=== PATIENT | female | born 1940 | race Caucasian/White ===

== ENCOUNTER 2016-07-18 06:24 | Day surgery (SDC) | payer OTHER ==
[2016-07-17 09:21] VITALS: BMI 27.6
[~2016-07-18 06:24] MED LIST: BSS (NA/CA/MG/K) BALANCED SALT SOLUTION OPHTH SOLN 15 ML BOTTLE OS ONE; BUPIVACAINE HCL/PF 0.75% 10 ML VIAL RB ONE; CHONDROITIN SU A/HYALUR SOD 1 KIT IO ONE; LIDOCAINE HCL 1% PRESERVATIVE FREE - 30ML VIAL IO ONE; LIDOCAINE HCL/PF 2% SDV 5ML VIAL INF ONE; POVIDONE-IODINE 5% OPHTHALMIC PREP 30 ML SOLUTION OS ONE; TOBRA 0.3%/DEXAMETH 0.1% OPHTHALMIC SUSP 2.5 ML BTL TP ONE
--- NOTE | 2016-07-18 06:27 | HP ---
History & Physical Update - History History: No Change - Physical Physical: No Change - Assessment Assessment: No Change - Plan Plan: No Change
[2016-07-18] MEDS ORDERED: MOXIFLOXACIN HCL 0.5% OPHTHALMIC 3 ML BOTTLE OP SCH (06:30)
[2016-07-18] MEDS ORDERED: PHENYLEPHRINE 2.5% OPHTH SOLN 15 ML BOTTLE OP SCH (06:30)
[2016-07-18] MEDS ORDERED: CYCLOPENTOLATE HCL 1% OPHTH SOLN 2 ML BOTTLE OP SCH (06:30)
[2016-07-18] MEDS ORDERED: TROPICAMIDE 1% OPHTH SOLN 15 ML BOTTLE OP SCH (06:30)
[2016-07-18] MEDS ORDERED: MOXIFLOXACIN HCL 0.5% OPHTHALMIC 3 ML BOTTLE ONE (06:44)
[2016-07-18] MEDS ORDERED: TROPICAMIDE 1% OPHTH SOLN 15 ML BOTTLE ONE (06:44)
[2016-07-18] MEDS ORDERED: CYCLOPENTOLATE HCL 1% OPHTH SOLN 2 ML BOTTLE ONE (06:44)
[2016-07-18] MEDS ORDERED: PHENYLEPHRINE 2.5% OPHTH SOLN 15 ML BOTTLE ONE (06:45)
[2016-07-18] MEDS ORDERED: TROPICAMIDE 1% OPHTH SOLN 15 ML BOTTLE OS ONE ×3 (06:50→07:05)
[2016-07-18] MEDS ORDERED: PHENYLEPHRINE 2.5% OPHTH SOLN 15 ML BOTTLE OS ONE ×3 (06:50→07:05)
[2016-07-18] MEDS ORDERED: CYCLOPENTOLATE HCL 1% OPHTH SOLN 2 ML BOTTLE OS ONE ×3 (06:50→07:05)
[2016-07-18] MEDS ORDERED: MOXIFLOXACIN HCL 0.5% OPHTHALMIC 3 ML BOTTLE OS ONE ×3 (06:50→07:05)
[2016-07-18 06:58] VITALS: TEMP 98.3
[2016-07-18] MEDS ORDERED: BUPIVACAINE HCL/PF 0.75% 10 ML VIAL ONE (07:20)
[2016-07-18] MEDS ORDERED: LIDOCAINE HCL/PF 1% SDV 5ML VIAL ONE (07:20)
[2016-07-18] MEDS ORDERED: TOBRAMYCIN/DEXAMETHASONE OPHTH. OINTMENT 1 TUBE ONE (07:20)
[2016-07-18] MEDS ORDERED: EPINEPHrine/PF 1 MG/1 ML (1:1,000) AMPULE ONE (07:20)
[2016-07-18] MEDS ORDERED: LIDOCAINE HCL/PF 2% SDV 5ML VIAL ONE (07:21)
[2016-07-18] MEDS ORDERED: POVIDONE-IODINE 5% OPHTHALMIC PREP 30 ML SOLUTION ONE (07:21)
[2016-07-18] MEDS ORDERED: SUCCINYLCHOLINE CHLORIDE 200 MG/10 ML VIAL ONE (07:36)
[2016-07-18] MEDS ORDERED: TETRACAINE 0.5% OPHTH SOLN 2 ML BOTTLE ONE (08:03)
[2016-07-18] MEDS ORDERED: PROPOFOL 20 ML ONE (08:04)
[2016-07-18] MEDS ORDERED: TETRACAINE 0.5% OPHTH SOLN 2 ML BOTTLE OS ONE (08:04)
[2016-07-18] MEDS ORDERED: BUPIVACAINE HCL/PF 0.75% 10 ML VIAL RB ONE (08:07)
[2016-07-18] MEDS ORDERED: LIDOCAINE HCL/PF 2% SDV 5ML VIAL INF ONE (08:07)
[2016-07-18] MEDS ORDERED: POVIDONE-IODINE 5% OPHTHALMIC PREP 30 ML SOLUTION OS ONE (08:08)
[2016-07-18] MEDS ORDERED: EPINEPHrine/PF 1 MG/1 ML (1:1,000) AMPULE SQ ONE (08:16)
[2016-07-18] MEDS ORDERED: LIDOCAINE HCL 1% PRESERVATIVE FREE - 30ML VIAL IO ONE (08:16)
[2016-07-18] MEDS ORDERED: BSS (NA/CA/MG/K) BALANCED SALT SOLUTION OPHTH SOLN 15 ML BOTTLE OS ONE (08:16)
[2016-07-18] MEDS ORDERED: CHONDROITIN SU A/HYALUR SOD 1 KIT IO ONE (08:16)
[2016-07-18] MEDS ORDERED: ACETYLCHOLINE 1:100 INTRA-OCUL 20 MG/2 ML KIT IO ONE (08:49)
[2016-07-18] MEDS ORDERED: TOBRA 0.3%/DEXAMETH 0.1% OPHTHALMIC SUSP 2.5 ML BTL TP ONE (08:53)
[2016-07-18] MEDS ORDERED: ACETYLCHOLINE 1:100 INTRA-OCUL 20 MG/2 ML KIT ONE (09:12)
[2016-07-18] MEDS ORDERED: acetaZOLAMIDE 250 MG TABLET ONE (10:05)
[2016-07-18] MEDS ORDERED: ACETAMINOPHEN 325 MG TABLET (FP) PO PRN (10:54)
[2016-07-18] MEDS ORDERED: ONDANSETRON 4 MG/2 ML VIAL IVPUSH PRN (10:54)
[2016-07-18] MEDS ORDERED: LACTATED RINGERS SOLUTION 1,000 ML IV SCH (11:00)
[2016-07-18 12:25] VITALS: BP 130/70; PULSE 52
--- NOTE | 2016-07-18 14:34 | OP ---
DATE OF OPERATION: 07/18/2016 SURGEON: Gonzales Beach MD PREOPERATIVE DIAGNOSIS: Cataract, left eye. OPERATION: Phacoemulsification and intraocular lens implantation, left eye. POSTOPERATIVE DIAGNOSIS: Cataract, left eye. ANESTHESIA: Local with intravenous sedation. COMPLICATIONS: Posterior capsule tear. BLOOD LOSS: None. SPECIMEN: None. BRIEF HISTORY: The patient is a 76-year-old woman with a past medical history of hypertension, who presented with anisometropia due to a dense 2+ nuclear sclerotic lens, having had cataract surgery in the right eye previously. After the risks, benefits, and alternatives to cataract surgery were discussed with the patient, she consented to surgery for the left eye. DESCRIPTION OF PROCEDURE: The patient was brought to the operating room and administered a retrobulbar block after receiving intravenous sedation. She was then prepped and draped in the usual sterile fashion, and an eyelid speculum was inserted in the left eye. A paracentesis was made, and the anterior chamber was inflated with nonpreserved lidocaine. This was followed by injection of Viscoat. A groove was made in the superotemporal clear cornea which was tunneled forward with a crescent blade. The anterior chamber was entered with a 2.75 keratome. The cystotome was used to make an incision in the center of the capsule, and a continuous curvilinear capsulorrhexis was created. The lens was hydrodissected until it was found to rotate freely within the capsular bag. Phacoemulsification was then used to remove the lens in its entirety. However, there was a posterior capsule tear noted once the nucleus was removed. Irrigation and aspiration were used to remove most of the cortical material. Anterior vitrectomy was then used to clear the vitreus from the anterior chamber and to remove some further cortical material. The anterior chamber and sulcus area were refilled with Provisc, and a 20.0-diopter, MA60AC lens was placed in the sulcus and rotated into position. Irrigation and aspiration were used to remove residual viscoelastic. One 10-0 nylon suture was placed in the wound. The wound was found to be watertight. Miochol was injected into the eye, and the pupil was found to constrict somewhat but round with no peeking. The eyelid speculum was removed from the eye, and TobraDex ointment and a patch and shield were placed over the left eye. The patient was transferred to the recovery room in stable condition and will follow up tomorrow. GONZALES BEACH M.D. [id number] MTDD
== END 2016-07-18 10:45 | disposition home or self-care (01) ==
LOC: JASU-SURG 06:24
PROVIDERS: ATTEND Ophthalmology
PROC: 08953ZZ Drainage of Left Vitreous, Percutaneous Approach (ICD-10-PCS; 2016-07-18)
PROC: 08RK3JZ Replacement of Left Lens with Synthetic Substitute, Percutaneous Approach (ICD-10-PCS; 2016-07-18)
PROC: 3E0C3GC Introduction of Other Therapeutic Substance into Eye, Percutaneous Approach (ICD-10-PCS; principal; 2016-07-18 08:00)
DX: H25.12 Age-related nuclear cataract, left eye (principal); H59.219 Accidental puncture and laceration of unspecified eye and adnexa during an ophthalmic procedure

== ENCOUNTER 2016-11-02 16:54 | Emergency (ER) | payer OTHER ==
[2016-11-02 17:05] VITALS: BP 126/59; PULSE 71; TEMP 98.2; BMI 28.1
--- NOTE | 2016-11-02 18:55 | PDOC ---
History of Present Illness - General Chief Complaint: Diarrhea Stated Complaint: DIARRHEA Time Seen by Provider: 11/02/16 18:54 - History of Present Illness Initial Comments: 76 year old female with history of HTN, HLD, and GERD presenting with diarrhea after a night of clam ingestion. She has had 3-4 non-bloody watery diarrhea episodes over the course of the day. No other eating partners had the clams. She denies any fevers, chills, nausea, vomiting, or other sick symptoms. 11/02/16 19:57 Past History - Past Medical History Allergies/Adverse Reactions: Allergies Allergy/AdvReac Type Severity Reaction Status Date / Time Penicillins Allergy Intermediate Rash Verified 11/02/16 17:01 Home Medications: Ambulatory Orders Aspirin [ASA -] 81 mg PO DAILY 03/06/16 Atorvastatin Ca [Lipitor] 20 mg PO DAILY 03/06/16 Metoprolol Tartrate [Lopressor -] 25 mg PO BID 03/06/16 Mirabegron [Myrbetriq] 50 mg PO HS 03/06/16 Omeprazole 40 mg PO DAILY 03/06/16 Telmisartan/Hydrochlorothiazid [Telmisartan-Hctz 80-25 mg Tab] 1 each PO DAILY 03/06/16 Anemia: No Asthma: No Cancer: Yes (skin cancer face-removed) Cardiac Disorders: No CVA: No COPD: No CHF: No Dementia: No Diabetes: No GI Disorders: No Disorders: No HTN: Yes Hypercholesterolemia: Yes Liver Disease: No Seizures: No Thyroid Disease: No - Surgical History Abdominal Surgery: No Appendectomy: No Cardiac Surgery: No Cholecystectomy: No Lung Surgery: No Neurologic Surgery: No Orthopedic Surgery: Yes (left knee arthroscopy) - Psycho/Social/Smoking Cessation Hx Suicidal Ideation: No Smoking History: Former smoker Have you smoked in the past 12 months: No Information on smoking cessation initiated: No Hx Alcohol Use: Yes (OCCAS) Drug/Substance Use Hx: No Substance Use Type: Alcohol Hx Substance Use Treatment: No Review of Systems - Review of Systems Constitutional: No: Chills, Diaphoresis, Fever, Loss of Appetite HEENTM: No: Eye Pain, Blurred Vision *Physical Exam - Vital Signs Last Vital Signs Temp Pulse Resp BP Pulse Ox 98.2 F 71 19 126/59 96 11/02/16 17:01 11/02/16 17:01 11/02/16 17:01 11/02/16 17:01 11/02/16 17:01 - Physical Exam General Appearance: Yes: Nourished, Appropriately Dressed. No: Apparent Distress HEENT: positive: EOMI, KAYDEN, Normal ENT Inspection, Normal Voice Neck: positive: Trachea midline, Normal Thyroid, Supple. negative: Tender, Rigid Respiratory/Chest: positive: Lungs Clear, Normal Breath Sounds. negative: Chest Tender, Respiratory Distress Cardiovascular: positive: Regular Rhythm, Regular Rate, S1, S2. negative: Edema , Murmur Gastrointestinal/Abdominal: positive: Normal Bowel Sounds, Flat, Soft. negative : Tender Musculoskeletal: positive: Normal Inspection. negative: CVA Tenderness Extremity: positive: Normal Inspection, Normal Range of Motion. negative: Tender Integumentary: positive: Normal Color, Dry, Warm Neurologic: positive: Fully Oriented, Alert ED Treatment Course - LABORATORY CBC & Chemistry Diagram: 11/02/16 21:00 11/02/16 21:00 Medical Decision Making - Medical Decision Making 76 year old female wit GERD presenting with likely enteritis after clam ingestion. Given that the patient is afebrile, VSS, and able to tolerate PO, her overall clinical picture is not acutely concerning for more pathogenic forms of enteritis including Hep A, Vibrio Parahaemolyiticus, Vibrio Cholera, or a Mycobacterium. CBC and CMP WNL and patient's symptoms improved on imodium. 11/02/16 22:14 *DC/Admit/Observation/Transfer Diagnosis at time of Disposition: Enteritis - Discharge Dispostion Disposition: HOME Condition at time of disposition: Improved Admit: No - Referrals Referrals: Obie Avila MD [Primary Care Provider] - - Patient Instructions Printed Discharge Instructions: Viral Gastroenteritis Additional Instructions: We believe that you have an enteritis from the clams that you recently ate. You can take imodium to help control your diarrhea. It should resolve within a few days. Please return to the ED if you have diarrhea that is worsening after a few days or you become febrile, notice bloody diarrhea, or have nausea and vomiting that is not allowing you to eat food or drink water. - Attestations Physician Attestion: 11/02/16 22:21 I, Dr. Sudarshan Jesus, attest that this document has been prepared under my direction and personally reviewed by me in its entirety. I further attest, that it accurately reflects all work, treatment, procedures and medical decision -making performed by me.
[2016-11-02 21:38] LABS: BASOPHIL 0.6 % (0-2.0); EOSINOPHIL 1.8 % (0-4.5); MCH 29.9 pg (25.7-33.7); MCHC 33.1 g/dl (32.0-36.0); MEAN CELL VOLUME 90.6 fl (80-96); MEAN PLT VOLUME 10.5 fl (7.5-11.1); NEUTROPHILS 65.7 % (42.8-82.8); PLATELET COUNT 248 K/MM3 (134-434); RDW 13.1 % (11.6-15.6); WHITE BLOOD COUNT 10.8 K/mm3 (4.0-10.0)
[2016-11-02] MEDS ORDERED: LOPERAMIDE HCL 2 MG CAPSULE PO ONE (21:39)
[2016-11-02] MEDS ORDERED: LOPERAMIDE HCL 2 MG CAPSULE ONE (21:44)
[2016-11-02 22:04] LABS: ALBUMIN 3.9 g/dl (3.4-5.0); ANION GAP 8 (8-16); BILIRUBIN,TOTAL 0.5 mg/dL (0.2-1.0); CALCIUM 9.2 mg/dL (8.5-10.1); CO2 27 mmol/L (21-32); CREATININE 0.9 mg/dL (0.55-1.02); GLUCOSE,RANDOM 91 mg/dL (74-106); SGOT/AST 23 U/L (15-37); SGPT/ALT 25 U/L (12-78); TOT PROT 6.6 g/dl (6.4-8.2)
[2016-11-02 22:05] LABS: ALK PHOS 85 U/L (45-117)
== END 2016-11-02 22:28 | disposition home or self-care (01) ==
LOC: JER 16:54
DX: K52.9 Noninfective gastroenteritis and colitis, unspecified (principal); I10 Essential (primary) hypertension; E78.00 Pure hypercholesterolemia, unspecified; K21.9 Gastro-esophageal reflux disease without esophagitis
CPT/HCPCS: 36415; 80053; 83605; 85025; 99281-25

== ENCOUNTER 2017-05-14 18:42 | Emergency (ER) | payer OTHER ==
[2017-05-14 19:02] VITALS: BMI 28.3
--- NOTE | 2017-05-14 19:03 | PDOC ---
Rapid Medical Evaluation Time Seen by Provider: 05/14/17 19:00 Medical Evaluation: Allergies Allergy/AdvReac Type Severity Reaction Status Date / Time Penicillins Allergy Intermediate Rash Verified 05/14/17 18:58 05/14/17 19:00 The patient presents with a chief complaint of: Nausea, feeling weak for 5 days. Admits to abdominal pain/chest pain. Hx of GERD I have performed a brief in-person evaluation of this patient; Pertinent physical exam findings: ambulatory, in no respiratory distress I have ordered the following: EKG, CBC, CMP, Lipase, PT INR, Trop The patient will proceed to the ED for further evaluation.
[2017-05-14 19:19] LABS: BASO % 0.5 % (0-2.0); EOS % 3.2 % (0-4.5); HEMATOCRIT 35.1 % (32.4-45.2); HEMOGLOBIN 11.8 GM/dL (10.7-15.3); LYMPH % 30.8 % (8-40); MCHC 33.6 g/dl (32.0-36.0); MEAN CELL VOLUME 89.2 fl (80-96); MEAN PLT VOLUME 9.5 fl (7.5-11.1); MONO % 5.5 % (3.8-10.2); PLATELET COUNT 244 K/MM3 (134-434); RBC 3.94 M/mm3 (3.60-5.2); RDW 13.8 % (11.6-15.6); WHITE BLOOD COUNT 7.4 K/mm3 (4.0-10.0)
[2017-05-14 19:29] LABS: URINE APPEARANCE CLEAR; URINE BILIRUBIN NEGATIVE (NEGATIVE); URINE BLOOD NEGATIVE (NEGATIVE); URINE COLOR LTYELLOW; URINE GLUCOSE (UA) NEGATIVE (NEGATIVE); URINE KETONE NEGATIVE (NEGATIVE); URINE LEUK ESTERASE TRACE (NEGATIVE); URINE NITRITE NEGATIVE (NEGATIVE); URINE PROTEIN NEGATIVE (NEGATIVE); URINE UROBILINOGEN NEGATIVE mg/dL (0.2-1.0)
[2017-05-14 19:45] LABS: INR 0.95 (0.82-1.09); PROTHROMBIN TIME (PATIENT) 10.7 SEC (9.98-11.88)
[2017-05-14 20:00] LABS: ALBUMIN 3.7 g/dl (3.4-5.0); ALK PHOS 88 U/L (45-117); ANION GAP 11 (8-16); BILIRUBIN,TOTAL 0.3 mg/dL (0.2-1.0); BLOOD UREA NITROGEN 28 mg/dL (7-18); CALCIUM 8.2 mg/dL (8.5-10.1); CHLORIDE 109 mmol/L (98-107); CO2 24 mmol/L (21-32); CREATININE 0.9 mg/dL (0.55-1.02); GLUCOSE,RANDOM 160 mg/dL (74-106); POTASSIUM 3.3 mmol/L (3.5-5.1); SGOT/AST 23 U/L (15-37); SGPT/ALT 41 U/L (12-78); SODIUM 144 mmol/L (136-145); TOT PROT 6.2 g/dl (6.4-8.2)
--- NOTE | 2017-05-14 21:01 | PDOC ---
History of Present Illness - General History Source: Patient Exam Limitations: No Limitations - History of Present Illness Initial Comments: 05/14/17 21:21 The patient is a 77 year old female with history of GERD who presents to the ED complaining of several days of room spinning dizziness and nausea. No vomiting or diarrhea. She also complains of associated chest and epigastric tightness, which she attributes to her GERD. She denies any true chest pain or shortness of breath. She denies headache, blurred vision, numbness or tingling, or focal weakness. She denies any vertigo history. <Jayla Kaye - Last Filed: 05/14/17 23:14> <Renetta Good - Last Filed: 05/15/17 00:14> - General Chief Complaint: Weakness Stated Complaint: FATIGUE Time Seen by Provider: 05/14/17 19:00 Past History <Jayla Kaye - Last Filed: 05/14/17 23:14> - Past Medical History Anemia: No Asthma: No Cancer: Yes (skin cancer face-removed) Cardiac Disorders: No CVA: No COPD: No CHF: No Dementia: No Diabetes: No GI Disorders: No Disorders: No HTN: Yes Hypercholesterolemia: Yes Liver Disease: No Seizures: No Thyroid Disease: No - Surgical History Abdominal Surgery: No Appendectomy: No Cardiac Surgery: No Cholecystectomy: No Lung Surgery: No Neurologic Surgery: No Orthopedic Surgery: Yes (left knee arthroscopy) - Suicide/Smoking/Psychosocial Hx Smoking History: Never smoked Have you smoked in the past 12 months: No Information on smoking cessation initiated: No Hx Alcohol Use: No Drug/Substance Use Hx: No Substance Use Type: Alcohol Hx Substance Use Treatment: No <Renetta Good - Last Filed: 05/15/17 00:14> - Past Medical History Allergies/Adverse Reactions: Allergies Allergy/AdvReac Type Severity Reaction Status Date / Time Penicillins Allergy Intermediate Rash Verified 05/14/17 18:58 Home Medications: Ambulatory Orders Aspirin [ASA -] 81 mg PO DAILY 03/06/16 Atorvastatin Ca [Lipitor] 20 mg PO DAILY 03/06/16 Metoprolol Tartrate [Lopressor -] 25 mg PO BID 03/06/16 Mirabegron [Myrbetriq] 50 mg PO HS 03/06/16 Omeprazole 40 mg PO DAILY 03/06/16 Telmisartan/Hydrochlorothiazid [Telmisartan-Hctz 80-25 mg Tab] 1 each PO DAILY 03/06/16 Meclizine HCl [Antivert -] 25 mg PO TID PRN #21 tablet 05/14/17 Review of Systems - Review of Systems Able to Perform ROS?: Yes Comments:: 05/14/17 21:25 GENERAL/CONSTITUTIONAL: No fever or chills. No weakness. HEAD, EYES, EARS, NOSE AND THROAT: No change in vision. No ear pain or discharge. No sore throat. CARDIOVASCULAR: +Chest/epigastric discomfort. No true chest pain or shortness of breath. RESPIRATORY: No cough, wheezing, or hemoptysis. GASTROINTESTINAL: +Nausea. No vomiting, diarrhea or constipation. GENITOURINARY: No dysuria, frequency, or change in urination. MUSCULOSKELETAL: No joint or muscle swelling or pain. No neck or back pain. SKIN: No rash NEUROLOGIC: +Dizziness. No headache, loss of consciousness, or change in strength/sensation. ENDOCRINE: No increased thirst. No abnormal weight change. HEMATOLOGIC/LYMPHATIC: No anemia, easy bleeding, or history of blood clots. ALLERGIC/IMMUNOLOGIC: No hives or skin allergy. <Jayla Kaye - Last Filed: 05/14/17 23:14> *Physical Exam - Vital Signs Last Vital Signs Temp Pulse Resp BP Pulse Ox 98.3 F 76 18 156/73 100 05/14/17 18:59 05/14/17 18:59 05/14/17 18:59 05/14/17 18:59 05/14/17 18:59 - Physical Exam Comments: 05/14/17 21:26 GENERAL: Awake, alert, and fully oriented, in no acute distress HEAD: No signs of trauma EYES: PERRLA, EOMI, sclera anicteric, conjunctiva clear ENT: Auricles normal inspection, hearing grossly normal, nares patent, oropharynx clear without exudates. Moist mucosa NECK: Normal ROM, supple, no lymphadenopathy, JVD, or masses LUNGS: Breath sounds equal, clear to auscultation bilaterally. No wheezes, and no crackles HEART: Regular rate and rhythm, normal S1 and S2, no murmurs, rubs or gallops ABDOMEN: Soft, nontender, normoactive bowel sounds. No guarding, no rebound. No masses EXTREMITIES: Normal range of motion, no edema. No clubbing or cyanosis. No cords, erythema, or tenderness NEUROLOGICAL: Alert, awake, appropriate. Cranial nerves 2-12 intact. No deficits to light touch and temperature in face, upper extremities and lower extremities. No motor deficits in the in face, upper extremities and lower extremities. Normoreflexic in the upper and lower extremities. Normal speech. Gait is normal without ataxia. SKIN: Warm, Dry, normal turgor, no rashes or lesions noted. <Jayla Kaye - Last Filed: 05/14/17 23:14> - Vital Signs Last Vital Signs Temp Pulse Resp BP Pulse Ox 98.3 F 76 18 156/73 100 05/14/17 18:59 05/14/17 18:59 05/14/17 18:59 05/14/17 18:59 05/14/17 18:59 <Renetta Good - Last Filed: 05/15/17 00:14> Heart Score/ECG Review #1 05/14/17 22:33 EKG obtained 21:54 Sinus bradycardia 50 bpm. Otherwise normal EKG. <Jayla Kaye - Last Filed: 05/14/17 23:14> ED Treatment Course - LABORATORY CBC & Chemistry Diagram: 05/14/17 19:13 05/14/17 19:13 - ADDITIONAL ORDERS Additional order review: Laboratory Results 05/14/17 05/14/17 05/14/17 19:17 19:13 19:13 PT with INR INR Sodium Potassium Chloride Carbon Dioxide Anion Gap BUN Creatinine Creat Clearance w eGFR Random Glucose Calcium Total Bilirubin AST ALT Alkaline Phosphatase Creatine Kinase 94 Troponin I < 0.02 Total Protein Albumin Lipase 250 Urine Color Ltyellow Urine Appearance Clear Urine pH 5.0 Ur Specific Register 1.020 Urine Protein Negative Urine Glucose (UA) Negative Urine Ketones Negative Urine Blood Negative Urine Nitrite Negative Urine Bilirubin Negative Urine Urobilinogen Negative Ur Leukocyte Esterase Trace 05/14/17 05/14/17 19:13 19:13 PT with INR 10.70 INR 0.95 Sodium 144 Potassium 3.3 L Chloride 109 H Carbon Dioxide 24 Anion Gap 11 BUN 28 H Creatinine 0.9 Creat Clearance w eGFR > 60 Random Glucose 160 H Calcium 8.2 L Total Bilirubin 0.3 D AST 23 ALT 41 Alkaline Phosphatase 88 Creatine Kinase Troponin I Total Protein 6.2 L Albumin 3.7 Lipase Urine Color Urine Appearance Urine pH Ur Specific Register Urine Protein Urine Glucose (UA) Urine Ketones Urine Blood Urine Nitrite Urine Bilirubin Urine Urobilinogen Ur Leukocyte Esterase 05/14/17 19:13 RBC 3.94 MCV 89.2 MCHC 33.6 RDW 13.8 MPV 9.5 Neutrophils % 60.0 Lymphocytes % 30.8 Monocytes % 5.5 Eosinophils % 3.2 Basophils % 0.5 - RADIOLOGY Radiograph Interpretation: 05/14/17 23:[address] without contrast, read and reviewed by Dr. Rader, reveals no evidence of acute intracranial pathology. <Jayla Kaye - Last Filed: 05/14/17 23:14> - LABORATORY CBC & Chemistry Diagram: 05/14/17 19:13 05/14/17 19:13 - ADDITIONAL ORDERS Additional order review: Laboratory Results 05/14/17 05/14/17 05/14/17 19:17 19:13 19:13 PT with INR INR Sodium Potassium Chloride Carbon Dioxide Anion Gap BUN Creatinine Creat Clearance w eGFR Random Glucose Calcium Total Bilirubin AST ALT Alkaline Phosphatase Creatine Kinase 94 Troponin I < 0.02 Total Protein Albumin Lipase 250 Urine Color Ltyellow Urine Appearance Clear Urine pH 5.0 Ur Specific Register 1.020 Urine Protein Negative Urine Glucose (UA) Negative Urine Ketones Negative Urine Blood Negative Urine Nitrite Negative Urine Bilirubin Negative Urine Urobilinogen Negative Ur Leukocyte Esterase Trace 05/14/17 05/14/17 19:13 19:13 PT with INR 10.70 INR 0.95 Sodium 144 Potassium 3.3 L Chloride 109 H Carbon Dioxide 24 Anion Gap 11 BUN 28 H Creatinine 0.9 Creat Clearance w eGFR > 60 Random Glucose 160 H Calcium 8.2 L Total Bilirubin 0.3 D AST 23 ALT 41 Alkaline Phosphatase 88 Creatine Kinase Troponin I Total Protein 6.2 L Albumin 3.7 Lipase Urine Color Urine Appearance Urine pH Ur Specific Register Urine Protein Urine Glucose (UA) Urine Ketones Urine Blood Urine Nitrite Urine Bilirubin Urine Urobilinogen Ur Leukocyte Esterase 05/14/17 19:13 RBC 3.94 MCV 89.2 MCHC 33.6 RDW 13.8 MPV 9.5 Neutrophils % 60.0 Lymphocytes % 30.8 Monocytes % 5.5 Eosinophils % 3.2 Basophils % 0.5 <Renetta Good - Last Filed: 05/15/17 00:14> Medical Decision Making - Medical Decision Making 05/15/17 00:11 77-year-old female came in because she's had several days of dizziness associated with some nausea. She denied chest pain or acute shortness of breath Patient has no gross focal neural deficits. CAT scan did not show any bleed, mass, edema or infarct Review his CBC and chemistries and the patient EKG normal sinus rhythm, troponin negative Patient received meclizine. Her symptoms resolved. Patient felt well and requests to go home and was discharged. Follow-up with her primary care doctor. Impression vertigo <Renetta Good - Last Filed: 05/15/17 00:14> *DC/Admit/Observation/Transfer - Attestations Scribe Attestion: 05/14/17 21:28 Documentation prepared by Jayla Kaye, acting as medical billing service for Renetta Good MD. <Jayla Kaye - Last Filed: 05/14/17 23:14> <Renetta Good - Last Filed: 05/15/17 00:14> Diagnosis at time of Disposition: Vertigo - Discharge Dispostion Disposition: HOME Condition at time of disposition: Stable - Prescriptions Prescriptions: Meclizine HCl [Antivert -] 25 mg PO TID PRN #21 tablet PRN Reason: Vertigo - Referrals Referrals: Obie Avila MD [Primary Care Provider] - - Patient Instructions Printed Discharge Instructions: DI for Vertigo Additional Instructions: please take your blood pressure medications as prescribed return for nay worsening symptoms
[2017-05-14] MEDS ORDERED: ONDANSETRON *ODT* 4 MG TABLET SL ONE (21:58)
[2017-05-14] MEDS ORDERED: MECLIZINE HCL 25 MG TABLET (FP) PO ONE (21:59)
[2017-05-14] MEDS ORDERED: ONDANSETRON *ODT* 4 MG TABLET ONE (22:07)
[2017-05-14] MEDS ORDERED: MECLIZINE HCL 25 MG TABLET (FP) ONE (22:07)
[2017-05-14] MEDS ORDERED: POTASSIUM CHLORIDE TABS 20 MEQ TABLET.ER (FP) PO ONE ×2 (22:49→23:12)
[2017-05-14 23:23] VITALS: BP 137/62; PULSE 59; TEMP 97.7
--- NOTE | 2017-05-16 10:26 | EKG ---
Test Reason : Blood Pressure : / mmHG Vent. Rate : 050 BPM Atrial Rate : 050 BPM P-R Int : 148 ms QRS Dur : 088 ms QT Int : 458 ms P-R-T Axes : 053 013 032 degrees QTc Int : 417 ms POOR DATA QUALITY, INTERPRETATION MAY BE ADVERSELY AFFECTED SINUS BRADYCARDIA OTHERWISE NORMAL ECG WHEN COMPARED WITH ECG OF 25-MAR-2011 21:56, NO SIGNIFICANT CHANGE WAS FOUND Confirmed by NATO ELLSWORTH, NOA ([id number]) on 05/16/2017 10:25:55 AM Referred By: Confirmed By:NOA DUTTON MD
== END 2017-05-14 23:23 | disposition home or self-care (01) ==
LOC: JER 18:42
DX: R42 Dizziness and giddiness (principal); I10 Essential (primary) hypertension; E78.00 Pure hypercholesterolemia, unspecified; Z85.828 Personal history of other malignant neoplasm of skin
CPT/HCPCS: 36415; 70450-TC; 80053; 81003; 81015; 82550; 83690; 84484; 85025; 85610; 93005; 93010; 99283-25

== ENCOUNTER 2018-02-11 10:59 | Day surgery (SDC) | payer OTHER ==
[2018-02-08 15:51] VITALS: BMI 25.0
[2018-02-11 12:01] VITALS: TEMP 98.4
[2018-02-11] MEDS ORDERED: PROPOFOL 20 ML ONE (13:34)
[2018-02-11] MEDS ORDERED: LIDOCAINE HCL 2% 100 MG/5 ML DISP.SYRIN ONE (13:37)
[2018-02-11] MEDS ORDERED: KETOROLAC TROMETHAMINE 30 MG/1 ML VIAL ONE (13:38)
--- NOTE | 2018-02-11 13:56 | OP ---
Operative Note - Note: Operative Date: 02/11/18 Pre-Operative Diagnosis: Right renal stone Operation: Right ESWL Findings: 7 mm mid pole Right renal stone Post-Operative Diagnosis: Same as Pre-op Surgeon: Jude Amos Anesthesia: Fractional Estimated Blood Loss (mls): 0
[2018-02-11] MEDS ORDERED: ONDANSETRON 4 MG/2 ML VIAL ONE (15:22)
[2018-02-11] MEDS ORDERED: ONDANSETRON 4 MG/2 ML VIAL IVPUSH PRN (15:30)
[2018-02-11 18:21] VITALS: BP 145/77; PULSE 57
--- NOTE | 2018-02-12 08:00 | OP ---
DATE OF OPERATION: 02/11/2018 PREOPERATIVE DIAGNOSIS: Right renal stone. POSTOPERATIVE DIAGNOSIS: Right renal stone. PROCEDURE: Right extracorporeal shock wave lithotripsy. ATTENDING: Kimber Fowler MD ANESTHESIA: Fractional. OPERATION: The patient was brought in the operating room, placed in supine position on the operating room table. Ultrasonography and fluoroscopy were performed. A right 8-mm mid-pole stone was identified. At this point, antibiotics and anesthesia were administered. Shock wave lithotripsy was then started, 2500 impulses at 17 joules of power were administered to the stone with excellent fragmentation of the stone noted under real time ultrasonography and fluoroscopy. There were no complications noted. The disposition of the patient was to the recovery room. KIMBER FOWLER M.D. [id number]
== END 2018-02-11 16:30 | disposition home or self-care (01) ==
LOC: JASU-SURG 10:59
PROVIDERS: ATTEND Urology
PROC: 0TF3XZZ Fragmentation in Right Kidney Pelvis, External Approach (ICD-10-PCS; principal; 2018-02-11 12:30)
DX: N20.0 Calculus of kidney (principal)

== ENCOUNTER 2019-12-01 04:22 | Day surgery (SDC) | payer OTHER ==
[2019-11-27 17:36] VITALS: BMI 25.7
[2019-12-01] MEDS ORDERED: MIDAZOLAM HCL 2 MG/2 ML SINGLE DOSE VIAL ONE (11:02)
[2019-12-01] MEDS ORDERED: DEXAMETHASONE SOD PHOSPHATE 4 MG/1 ML VIAL ONE (11:02)
[2019-12-01] MEDS ORDERED: DEXAMETHASONE SOD PHOSPHATE/PF 10 MG/ML SDV ONE (11:44)
--- NOTE | 2019-12-01 11:45 | OP ---
Operative Note - Note: Operative Date: 12/01/19 Pre-Operative Diagnosis: Left renal stone Operation: Left ESWL Findings: 6 mm mid pole left renal stone Post-Operative Diagnosis: Same as Pre-op Surgeon: Jude Amos Anesthesia: Regional Estimated Blood Loss (mls): 0 Operative Report Dictated: Yes
[2019-12-01 13:47] VITALS: BP 156/80; PULSE 57; TEMP 96.2
--- NOTE | 2019-12-01 16:17 | OP ---
DATE OF OPERATION: 12/01/2019 PREOPERATIVE DIAGNOSIS: Left renal stone. POSTOPERATIVE DIAGNOSIS: Left renal stone. PROCEDURE: Left extracorporeal shockwave lithotripsy. ATTENDING: Kimber Amos M.D. ANESTHESIA: Fractional. DESCRIPTION OF PROCEDURE: Patient was brought in the operating room, placed in a supine position on the operating room table. Ultrasonography and fluoroscopy were performed. A 6-mm left mid pole stone was identified. At this point, anesthesia was administered as were preoperative antibiotics. 3000 impulses at 17 joules of power were administered to the stone with excellent fragmentation noted under real-time ultrasonography and fluoroscopy. No complications were noted. DISPOSITION: To recovery room. KIMBER FOWLER M.D. [id number]
[2019-12-01] MEDS ORDERED: ONDANSETRON 4 MG/2 ML VIAL IVPUSH PRN (17:40)
[2019-12-01] MEDS ORDERED: ACETAMINOPHEN 325 MG TABLET (FP) PO PRN (17:40)
[2019-12-01] MEDS ORDERED: oxyCODONE HCL 5 MG TABLET PO PRN (17:40)
[2019-12-01] MEDS ORDERED: LACTATED RINGERS SOLUTION 1,000 ML IV SCH (17:45)
== END 2019-12-01 13:48 | disposition home or self-care (01) ==
LOC: JASU-SURG 04:22
PROVIDERS: ATTEND Urology
PROC: 0TF4XZZ Fragmentation in Left Kidney Pelvis, External Approach (ICD-10-PCS; principal; 2019-12-01 11:27)
DX: N20.0 Calculus of kidney (principal)

== ENCOUNTER 2020-08-06 18:37 | Emergency (ER) | payer OTHER ==
[2020-08-06 18:49] VITALS: TEMP 98.2; BMI 26.1
[2020-08-06] MEDS ORDERED: METOPROLOL TARTRATE 50 MG TABLET (FP) PO ONE (21:01)
[2020-08-06] MEDS ORDERED: amLODIPine BESYLATE 5 MG TABLET (FP) PO ONE (21:04)
[2020-08-06] MEDS ORDERED: amLODIPine BESYLATE 5 MG TABLET (FP) ONE (21:16)
[2020-08-06] MEDS ORDERED: hydrALAZINE HCL 20 MG/ML VIAL IVPUSH ONE (22:12)
[2020-08-06] MEDS ORDERED: hydrALAZINE HCL 20 MG/ML VIAL ONE (22:22)
[2020-08-06 23:00] LABS: BASO % 0.4 % (0-2.0); EOS % 1.8 % (0-4.5); HEMATOCRIT 38.3 % (32.4-45.2); HEMOGLOBIN 12.9 GM/dL (10.7-15.3); LYMPH % 39.8 % (8-40); MCH 30.6 pg (25.7-33.7); MCHC 33.6 g/dl (32.0-36.0); MEAN CELL VOLUME 91.1 fl (80-96); PLATELET COUNT 208 K/MM3 (134-434); RBC 4.21 M/mm3 (3.60-5.2); RDW 14.3 % (11.6-15.6); WHITE BLOOD COUNT 10.2 K/mm3 (4.0-10.0)
[2020-08-06 23:07] LABS: INR 0.96 (0.83-1.09); PROTHROMBIN TIME (PATIENT) 11.8 SEC (9.7-13.0)
[2020-08-06 23:10] LABS: ACTIVATED PTT 26.7 SECONDS (25.2-36.5)
[2020-08-06 23:20] LABS: CHLORIDE 107 mmol/L (98-107); SODIUM 136 mmol/L (136-145)
[2020-08-06 23:22] LABS: ALBUMIN 3.6 g/dl (3.4-5.0); CALCIUM 8.6 mg/dL (8.5-10.1); CO2 27 mmol/L (21-32)
[2020-08-06 23:23] LABS: BLOOD UREA NITROGEN 23.5 mg/dL (7-18); GLUCOSE,RANDOM 100 mg/dL (74-106); MAGNESIUM 2.7 mg/dL (1.8-2.4)
[2020-08-06 23:26] LABS: CREATININE 1.1 mg/dL (0.55-1.3)
[2020-08-06 23:28] LABS: ALK PHOS 88 U/L (45-117); BILIRUBIN,TOTAL 0.4 mg/dL (0.2-1); TOT PROT 7.1 g/dl (6.4-8.2)
[2020-08-06 23:40] LABS: ANION GAP 2 MMOL/L (8-16); SGOT/AST 101 U/L (15-37); SGPT/ALT 39 U/L (13-61)
[2020-08-07] MEDS ORDERED: hydrALAZINE HCL 20 MG/ML VIAL IVPUSH ONE (00:08)
[2020-08-07] MEDS ORDERED: VALSARTAN 40 MG TABLET PO ONE (00:28)
[2020-08-07 00:46] LABS: PH,URINE 7.5 (5.0-8.0); URINE APPEARANCE CLEAR; URINE BILIRUBIN NEGATIVE (NEGATIVE); URINE COLOR YELLOW; URINE GLUCOSE (UA) NEGATIVE (NEGATIVE); URINE KETONE NEGATIVE (NEGATIVE); URINE LEUK ESTERASE NEGATIVE (NEGATIVE); URINE NITRITE NEGATIVE (NEGATIVE); URINE PROTEIN NEGATIVE (NEGATIVE); URINE UROBILINOGEN 0.2 mg/dL (0.2-1.0)
[2020-08-07] MEDS ORDERED: FUROSEMIDE 40 MG/4 ML INJECTABLE VIAL IVPUSH ONE (02:10)
[2020-08-07 03:00] VITALS: BP 159/69; PULSE 71
== END 2020-08-07 03:13 | disposition home or self-care (01) ==
LOC: JER 18:37
PROC: 3E033NZ Introduction of Analgesics, Hypnotics, Sedatives into Peripheral Vein, Percutaneous Approach (ICD-10-PCS; principal; 2020-08-06)
DX: I10 Essential (primary) hypertension (principal)
CPT/HCPCS: 36415; 70450-TC; 80053; 81003; 82550; 82553; 83735; 84132; 84484; 85025; 85610; 85730; 93005; 93010; 99285-25

== ENCOUNTER 2023-08-13 11:06 | Emergency (ER) | payer OTHER ==
[2023-08-13 11:15] VITALS: BMI 25.3
[2023-08-13 13:20] VITALS: BP 162/65; PULSE 65; RESP 16; TEMP 98.7
== END 2023-08-13 13:24 | disposition home or self-care (01) ==
LOC: JERFT 11:06
DX: R68.84 Jaw pain (principal); K08.89 Other specified disorders of teeth and supporting structures
CPT/HCPCS: 99283-25

== ENCOUNTER 2023-09-29 18:18 | Emergency (ER) | payer OTHER ==
[2023-09-29 18:26] VITALS: BP 146/69; PULSE 82; RESP 16; TEMP 100.2; BMI 25.3
[2023-09-29] MEDS ORDERED: ACETAMINOPHEN 325 MG TABLET (FP) ONE (19:21)
[2023-09-29] MEDS: ACETAMINOPHEN 500 MG TABLET (FP) PO ONE (19:27)
== END 2023-09-29 21:14 | disposition home or self-care (01) ==
LOC: JER 18:18
DX: U07.1 COVID-19 (principal); R05.9 Cough, unspecified; R09.81 Nasal congestion; R06.7 Sneezing; R50.9 Fever, unspecified
CPT/HCPCS: 0241U-QW; 71045-TC-FY; 93005; 93010; 99285-25